=== PATIENT | male | born 1965 | race Two or more races ===

== ENCOUNTER 2020-04-09 11:20 | Emergency (ER) | payer OTHER ==
[~2020-04-09] VITALS: Ht 167.6 cm; Wt 47.6 kg
== END 2020-04-09 14:02 | disposition home or self-care (01) ==
LOC: ER 11:20
DX: M79.7 Fibromyalgia (principal); F41.8 Other specified anxiety disorders

== ENCOUNTER → 2022-11-21 | Emergency (ER) | payer OTHER ==
[~2022-11-21] VITALS: Ht 170.2 cm; Wt 68.0 kg
[~2022-11-21] MED LIST: METROTEXATE
== END | disposition home or self-care (01) ==
LOC: ER 16:49
DX: B35.8 Other dermatophytoses (principal)

== ENCOUNTER 2024-08-04 13:53 | Outpatient (CLI) | payer OTHER ==
[~2024-08-04 13:53] MED LIST changes: +AMBIEN5 MG PO; +ATIVAN0.5 M1 PO; +COZAAR50 MG PO; +REMERON15 M1 PO
== END 2024-08-04 13:55 | disposition home or self-care (01) ==
LOC: RAD 13:53
PROVIDERS: ATTEND Internal Medicine
DX: J44.9 Chronic obstructive pulmonary disease, unspecified (principal)